=== PATIENT | female | born 2000 | race Caucasian/White ===

== ENCOUNTER 2020-09-19 21:13 | Inpatient (IN) ==
[2020-09-19] MEDS ORDERED: BUTORPHANOL 2 MG/ML VIAL IV PRN (22:34)
[2020-09-19] MEDS ORDERED: ONDANSETRON 4 MG/2 ML VIAL IV PRN (22:34)
[2020-09-19] MEDS ORDERED: MEPERIDINE 50 MG/1 ML VIAL IV PRN (22:34)
[2020-09-19 23:18] LABS: Basophils # 0.1 10*3/uL (0.0-0.2); Basophils % 0.3 % (0.0-0.8); Eosinophils # 0.2 10*3/uL (0.0-0.87); Eosinophils % 1.3 % (0.00-10.9); Hematocrit 40.7 VOL% (35.7-47.0); Hemoglobin 13.4 GM/DL (12.0-16.0); Immature Granulocytes % 1.8 %; Immature Granulocytes Absolute 0.34 #; Lymphocytes # 2.7 10*3/uL (1.4-4.0); Lymphocytes % 14.4 % (21.3-54.2); Mean Corpuscular HGB Conc 32.9 GM/DL (32-36); Mean Corpuscular Volume 91.7 FL (87-102); Mean Platelet Volume 11.1 FL (9.6-12.0); Neutrophils % 77.2 % (38.7-73.9); Platelet Count 358 T/CUMM (130-400); Red Blood Count 4.44 MC/CUMM (3.8-5.5); Red Cell Distribution Width 12.6 % (9.3-17.3); White Blood Count 18.7 T/CUMM (4-12)
[2020-09-19 23:58] LABS: Alanine Aminotransferase 21 U/L (13-56); Albumin 2.4 G/DL (3.4-5.0); Alkaline Phosphatase 146 U/L (45-117); Aspartate Amino Transferase 14 U/L (0-37); Bilirubin,Total < 0.39 MG/DL (0.2-1.0); Blood Urea Nitrogen 11 MG/DL (7-18); Calcium 9.5 MG/DL (8.5-10.1); Carbon Dioxide 21 MMOL/L (21-32); Estimated Glom Filtration Rate 173 ML/MIN; Glucose 107 MG/DL (74-106); Osmolality,Calculated 275.5 MOS/KG (273-304); Potassium 3.9 MMOL/L (3.5-5.1); Sodium 139 MMOL/L (136-145); Total Protein 7.4 G/DL (5.0-7.5)
[2020-09-20] MEDS: LACTATED RINGERS 1,000 ML IV SCH ×2 (06:46→18:19)
[2020-09-20] MEDS ORDERED: CITRIC ACID/SODIUM CITRATE 30 ML UDCUP PO ONE ×2 (18:30→18:38)
[2020-09-20] MEDS ORDERED: ceFAZolin 3,000 MG in SYRINGE 1 EACH IV ONE (18:30)
[2020-09-20] MEDS ORDERED: CITRIC ACID/SODIUM CITRATE 30 ML UDCUP ONE (18:35)
[2020-09-20] MEDS ORDERED: FAMOTIDINE 20 MG/2 ML VIAL IV ONE ×2 (18:36→18:42)
[2020-09-20] MEDS ORDERED: MORPHINE 10 MG/10 ML VIAL ONE (18:39)
[2020-09-20] MEDS ORDERED: miSOPROStoL 200 MCG TABLET ONE (18:40)
[2020-09-20] MEDS ORDERED: TRANEXAMIC ACID 1,000 MG/10 ML VIAL ONE (18:40)
[2020-09-20] MEDS ORDERED: ONDANSETRON 4 MG/2 ML VIAL ONE (18:41)
[2020-09-20] MEDS ORDERED: BUPIVACAINE SPINAL 0.75% 2 ML AMP SPINAL ONE (18:41)
[2020-09-20] MEDS ORDERED: OXYTOCIN/LR 20 UNIT/1,000 ML BAG IV ONE ×3 (18:41→20:27)
[2020-09-20] MEDS ORDERED: METHYLERGONOVINE 0.2 MG/1 ML AMP ONE (18:41)
[2020-09-20] MEDS ORDERED: CARBOPROST TROMETHAMINE 250 MCG/ML AMP IM ONE (18:41)
[2020-09-20 19:06] LABS: Bilirubin,Urine Negative (Negative); Blood, Urine Negative (Negative); Glucose,Urine (UA) Negative (Negative); Ketones,Urine 5 mg/dL (Negative); Mucus,Urine Few /LPF (Occasional); Nitrite,Urine Negative (Negative); Protein,Urine Negative; Squamous Epithelial Cell,Urine Occasional /HPF (0-10); Urine Appearance CLEAR (Clear); Urine Color Yellow (Yellow); Urine Specific Gravity 1.025 (1.001-1.035)
[2020-09-20 19:35] LABS: Cord Arterial Blood HCO3 10.3 MMOL/L
[2020-09-20 19:36] LABS: Cord Venous Blood HCO3 22.4 MMOL/L
[2020-09-20 19:45] LABS: Cord Venous Blood PCO2 131.1 MMHG
[2020-09-20 19:46] LABS: Cord Venous Blood PO2 10.5 MMHG
[2020-09-20] MEDS ORDERED: PHENYLEPHRINE 1 MG/10 ML SYRINGE IV ONE (19:57)
[2020-09-20] MEDS ORDERED: MEASLES/MUMPS/RUBELLA VACCINE 0.5 ML VIAL SUBCUT ONE (20:27)
[2020-09-20] MEDS ORDERED: WITCH HAZEL PADS 100/JAR TOP PRN (20:27)
[2020-09-20] MEDS ORDERED: IBUPROFEN 800 MG TABLET PO PRN (20:27)
[2020-09-20] MEDS ORDERED: RHO(D) IMMUNE GLOBULIN 300 MCG SYRINGE IM ONE (20:27)
[2020-09-20] MEDS ORDERED: DIPH/TET/ACEL PERT BOOSTER VACCINE 0.5 ML VIAL IM ONE (20:27)
[2020-09-20] MEDS ORDERED: BENZOCAINE 20%/MENTHOL 0.5% SPRAY 56 GM CAN TOP PRN (20:27)
[2020-09-20] MEDS ORDERED: ONDANSETRON 4 MG/2 ML VIAL IV PRN (20:27)
[2020-09-20] MEDS ORDERED: oxyCODONE/ACETAMINOPHEN 5-325 MG TABLET PO PRN (20:27)
[2020-09-20] MEDS ORDERED: LANOLIN 50% CREAM 0.3 OZ TUBE TOP PRN (20:27)
[2020-09-20] MEDS ORDERED: HYDROCORTISONE 2.5% RECTAL CREAM 30 GM TUBE TOP PRN (20:27)
[2020-09-20] MEDS ORDERED: ACETAMINOPHEN 325 MG TABLET PO PRN (20:27)
[2020-09-20] MEDS ORDERED: BISACODYL 10 MG SUPP RECTAL PRN (20:27)
[2020-09-20] MEDS ORDERED: ACETAMINOPHEN 1,000 MG/100 ML VIAL IV ONE (20:29)
[2020-09-21] MEDS: ceFAZolin 1,000 MG in SYRINGE 1 EACH IV SCH ×2 (02:10→10:56)
[2020-09-21] MEDS ORDERED: OXYTOCIN/LR 20 UNIT/1,000 ML BAG IV SCH (05:00)
[2020-09-21 06:20] LABS: Basophils % 0.3 % (0.0-0.8); Eosinophils # 0.2 10*3/uL (0.0-0.87); Eosinophils % 1.2 % (0.00-10.9); Hematocrit 36.3 VOL% (35.7-47.0); Hemoglobin 11.9 GM/DL (12.0-16.0); Immature Granulocytes % 1.2 %; Immature Granulocytes Absolute 0.17 #; Lymphocytes # 2.2 10*3/uL (1.4-4.0); Lymphocytes % 15.2 % (21.3-54.2); Mean Corpuscular HGB Conc 32.8 GM/DL (32-36); Mean Corpuscular Volume 93.6 FL (87-102); Mean Platelet Volume 10.6 FL (9.6-12.0); Monocytes % 7.3 % (1.7-12.7); Neutrophils % 74.8 % (38.7-73.9); Platelet Count 233 T/CUMM (130-400); Red Blood Count 3.88 MC/CUMM (3.8-5.5); Red Cell Distribution Width 12.5 % (9.3-17.3); White Blood Count 14.7 T/CUMM (4-12)
[2020-09-21] MEDS: DOCUSATE SODIUM 100 MG CAPSULE PO SCH ×2 (10:55→20:49)
[2020-09-21] MEDS: SIMETHICONE CHEW 80 MG TABLET PO PRN ×2 (10:55→20:49)
[2020-09-21] MEDS: MAGNESIUM HYDROXIDE SUSP 30 ML UDCUP PO PRN (10:55)
[2020-09-21] MEDS: ENOXAPARIN 40 MG/0.4 ML SYRINGE SUBCUT SCH (10:55)
[2020-09-21] MEDS: oxyCODONE/ACETAMINOPHEN 5-325 MG TABLET PO PRN (20:49)
[2020-09-22] MEDS: MAGNESIUM HYDROXIDE SUSP 30 ML UDCUP PO PRN (08:17)
[2020-09-22] MEDS: oxyCODONE/ACETAMINOPHEN 5-325 MG TABLET PO PRN (08:17)
[2020-09-22] MEDS: SIMETHICONE CHEW 80 MG TABLET PO PRN (08:17)
[2020-09-22] MEDS: ENOXAPARIN 40 MG/0.4 ML SYRINGE SUBCUT SCH (08:17)
[2020-09-22] MEDS: DOCUSATE SODIUM 100 MG CAPSULE PO SCH (08:17)
[2020-09-22 09:01] VITALS: BP 141/88
== END 2020-09-22 12:10 | disposition home or self-care (01) | DRG 540 ==
LOC: N.LDOUT 21:13 → N.LD 21:16 → N.OB 09-20 23:15
PROVIDERS: ADMIT Specialist; ATTEND Specialist
PROC: LDCSECT (ICD-10-PCS; 2020-09-20 19:00)

== ENCOUNTER 2022-03-23 05:30 | Inpatient (IN) ==
[2022-03-23] MEDS ORDERED: CITRIC ACID/SODIUM CITRATE 30 ML UDCUP PO ONE (05:43)
[2022-03-23] MEDS ORDERED: FAMOTIDINE 20 MG/2 ML VIAL IV ONE (05:43)
[2022-03-23] MEDS ORDERED: METHYLERGONOVINE 0.2 MG/1 ML AMP IM PRN (05:43)
[2022-03-23] MEDS ORDERED: miSOPROStoL 200 MCG TABLET RECTAL PRN (05:43)
[2022-03-23] MEDS ORDERED: TRANEXAMIC ACID 1,000 MG in SODIUM CHLORIDE 0.9% 100 ML IV PRN (05:43)
[2022-03-23] MEDS ORDERED: CARBOPROST TROMETHAMINE 250 MCG/ML AMP IM PRN (05:43)
[2022-03-23 06:16] LABS: Basophils # 0.1 10*3/uL (0.0-0.2); Basophils % 0.5 % (0.0-0.8); Eosinophils # 0.1 10*3/uL (0.0-0.87); Eosinophils % 0.7 % (0.00-10.9); Hematocrit 35.3 VOL% (35.7-47.0); Hemoglobin 11.5 GM/DL (12.0-16.0); Immature Granulocytes Absolute 0.12 #; Lymphocytes # 2.9 10*3/uL (1.4-4.0); Lymphocytes % 23.7 % (21.3-54.2); Mean Corpuscular HGB Conc 32.6 GM/DL (32-36); Mean Corpuscular Volume 93.1 FL (87-102); Mean Platelet Volume 10.9 FL (9.6-12.0); Monocytes # 0.8 10*3/uL (0.11-0.8); Monocytes % 6.7 % (1.7-12.7); Neutrophils % 67.4 % (38.7-73.9); Platelet Count 292 T/CUMM (130-400); Red Blood Count 3.79 MC/CUMM (3.8-5.5); Red Cell Distribution Width 12.8 % (9.3-17.3); White Blood Count 12.4 T/CUMM (4-12)
[2022-03-23] MEDS ORDERED: miSOPROStoL 200 MCG TABLET ONE ×2 (06:17→07:02)
[2022-03-23] MEDS ORDERED: PHENYLEPHRINE 1 MG/10 ML SYRINGE IV ONE ×3 (06:26→08:03)
[2022-03-23] MEDS ORDERED: ONDANSETRON 4 MG/2 ML VIAL ONE ×2 (06:26→08:03)
[2022-03-23] MEDS ORDERED: buprenorphine HCL 0.3 MG/ML VIAL ONE (06:27)
[2022-03-23] MEDS ORDERED: LACTATED RINGERS 1,000 ML IV SCH (06:30)
[2022-03-23] MEDS ORDERED: OXYTOCIN/LR 20 UNIT/1,000 ML BAG IV ONE ×4 (06:30→14:04)
[2022-03-23 06:59] LABS: Calcium Oxalate Crystals,Urine Occasional /HPF (Few); Glucose,Urine (UA) Negative (Negative); Ketones,Urine Negative (Negative); Mucus,Urine Occasional /LPF (Occasional); Nitrite,Urine Negative (Negative); Protein,Urine Negative (Negative); RBC,Urine 11 /HPF (0-4); Squamous Epithelial Cell,Urine Occasional /HPF (0-10); Urine Appearance Clear (Clear); Urine Color Yellow (Yellow); Urine Specific Gravity > 1.030 (1.001-1.035)
[2022-03-23 07:00] LABS: Bilirubin,Urine Negative (Negative); Blood, Urine Negative (Negative); Urine Urobilinogen 0.2 eU/dL (<2.0)
[2022-03-23] MEDS ORDERED: METHYLERGONOVINE 0.2 MG/1 ML AMP ONE (07:03)
[2022-03-23] MEDS ORDERED: CARBOPROST TROMETHAMINE 250 MCG/ML AMP IM ONE (07:03)
[2022-03-23] MEDS ORDERED: MIDAZOLAM 2 MG/2 ML VIAL ONE ×2 (08:13)
[2022-03-23 08:24] LABS: Cord Venous Blood HCO3 21.8 MMOL/L; Cord Venous Blood PCO2 44.3 MMHG; Cord Venous Blood PO2 32.6
[2022-03-23] MEDS ORDERED: ACETAMINOPHEN INJ 1,000 MG/100 ML VIAL IV ONE (08:28)
[2022-03-23] MEDS ORDERED: KETOROLAC 30 MG/1 ML VIAL ONE (08:28)
[2022-03-23] MEDS ORDERED: propofoL 200 MG/20 ML VIAL IV ONE (09:01)
[2022-03-23] MEDS ORDERED: BISACODYL 10 MG SUPP RECTAL PRN (14:04)
[2022-03-23] MEDS ORDERED: HYDROCORTISONE 2.5% RECTAL CREAM 30 GM TUBE TOP PRN (14:04)
[2022-03-23] MEDS ORDERED: BENZOCAINE 20%/MENTHOL 0.5% SPRAY 56 GM CAN TOP PRN (14:04)
[2022-03-23] MEDS ORDERED: DIPH/TET/ACEL PERT BOOSTER VACCINE 0.5 ML VIAL IM ONE (14:04)
[2022-03-23] MEDS ORDERED: ONDANSETRON 4 MG/2 ML VIAL IV PRN (14:04)
[2022-03-23] MEDS ORDERED: ACETAMINOPHEN 325 MG TABLET PO PRN (14:04)
[2022-03-23] MEDS ORDERED: MEASLES/MUMPS/RUBELLA VACCINE 0.5 ML VIAL SUBCUT ONE (14:04)
[2022-03-23] MEDS ORDERED: RHO(D) IMMUNE GLOBULIN 300 MCG SYRINGE IM ONE (14:04)
[2022-03-23] MEDS ORDERED: LANOLIN 50% CREAM 0.3 OZ TUBE TOP PRN (14:04)
[2022-03-23] MEDS ORDERED: WITCH HAZEL PADS 100/JAR TOP PRN (14:04)
[2022-03-23] MEDS ORDERED: oxyCODONE/ACETAMINOPHEN 5-325 MG TABLET PO PRN ×2 (14:04)
[2022-03-23] MEDS: KETOROLAC 30 MG/1 ML VIAL IV SCH (17:13)
[2022-03-23] MEDS: ACETAMINOPHEN 500 MG TABLET PO SCH (17:14)
[2022-03-23] MEDS: DOCUSATE SODIUM 100 MG CAPSULE PO SCH (21:48)
[2022-03-23] MEDS ORDERED: ceFAZolin 2,000 MG/50 ML DUPLEX IV SCH (22:00)
[2022-03-24] MEDS: ACETAMINOPHEN 500 MG TABLET PO SCH ×2 (00:40→10:05)
[2022-03-24] MEDS: KETOROLAC 30 MG/1 ML VIAL IV SCH ×2 (00:41→09:48)
[2022-03-24] MEDS ORDERED: ceFAZolin 2,000 MG/50 ML DUPLEX IV SCH (01:00)
[2022-03-24 05:09] LABS: Basophils % 0.4 % (0.0-0.8); Eosinophils # 0.4 10*3/uL (0.0-0.87); Eosinophils % 3.6 % (0.00-10.9); Hematocrit 33.3 VOL% (35.7-47.0); Hemoglobin 10.7 GM/DL (12.0-16.0); Immature Granulocytes Absolute 0.11 #; Lymphocytes # 2.1 10*3/uL (1.4-4.0); Lymphocytes % 19.7 % (21.3-54.2); Mean Corpuscular HGB Conc 32.1 GM/DL (32-36); Mean Corpuscular Volume 94.6 FL (87-102); Monocytes # 0.7 10*3/uL (0.11-0.8); Monocytes % 6.5 % (1.7-12.7); Neutrophils % 68.8 % (38.7-73.9); Platelet Count 233 T/CUMM (130-400); Red Blood Count 3.52 MC/CUMM (3.8-5.5); Red Cell Distribution Width 12.7 % (9.3-17.3); White Blood Count 10.7 T/CUMM (4-12)
[2022-03-24] MEDS: DOCUSATE SODIUM 100 MG CAPSULE PO SCH ×2 (09:48→21:43)
[2022-03-25] MEDS: IBUPROFEN 800 MG TABLET PO PRN ×2 (03:35→17:31)
[2022-03-25 09:59] VITALS: BP 132/74
[2022-03-25] MEDS: DOCUSATE SODIUM 100 MG CAPSULE PO SCH (16:51)
== END 2022-03-25 18:05 | disposition home or self-care (01) | DRG 540 ==
LOC: N.LD 05:30 → N.OB 11:45
PROVIDERS: ADMIT Specialist; ATTEND Specialist
PROC: LDCSECT (ICD-10-PCS; 2022-03-23 07:30)